=== PATIENT | male | born 1950 | race Caucasian/White ===

== ENCOUNTER 2022-01-19 10:31 | Emergency (ER) | payer OTHER ==
[~2022-01-19] VITALS: Ht 175.3 cm; Wt 80.7 kg
[2022-01-19] MEDS ORDERED: ORPHENADRINE C100 MG PO (13:01)
[2022-01-19] MEDS ORDERED: DICLOFENAC POTA50 MG PO (13:01)
== END 2022-01-19 13:07 ==
LOC: ER 10:31
DX: S33.5XXA Sprain of ligaments of lumbar spine, initial encounter (principal); X58.XXXA Exposure to other specified factors, initial encounter; Y93.9 Activity, unspecified; Y92.9 Unspecified place or not applicable; Y99.9 Unspecified external cause status; Z88.0 Allergy status to penicillin

== ENCOUNTER 2023-04-25 15:20 | Outpatient (CLI) | payer OTHER ==
[~2023-04-25 15:20] MED LIST: DICLOFENAC POTA50 MG PO; ORPHENADRINE C100 MG PO
== END 2023-04-25 15:30 | disposition home or self-care (01) ==
LOC: RAD 15:20
PROVIDERS: ATTEND Orthopaedic Surgery
DX: M25.561 Pain in right knee (principal); M25.562 Pain in left knee

== ENCOUNTER 2023-05-24 14:40 | Outpatient (CLI) | payer OTHER | END 2023-05-24 14:42 | disposition home or self-care (01) | LOC: NUCLEAR 14:40 | PROVIDERS: ATTEND Orthopaedic Surgery | DX: M81.0 Age-related osteoporosis without current pathological fracture (principal) ==

== ENCOUNTER 2023-08-09 13:32 | Outpatient (CLI) | payer OTHER | END 2023-08-09 13:34 | disposition home or self-care (01) | LOC: LAB 13:32 | PROVIDERS: ATTEND Orthopaedic Surgery | DX: E55.9 Vitamin D deficiency, unspecified (principal); M85.9 Disorder of bone density and structure, unspecified; E56.1 Deficiency of vitamin K ==

== ENCOUNTER → 2023-08-19 08:02 | Outpatient (CLI) | payer OTHER ==
[2023-08-19 08:39] LABS: URINE APPEARANCE Clear; URINE BILIRRUBIN Negative (NEGATIVE); URINE BLOOD Negative; URINE COLOR Yellow; URINE GLUCOSE Negative (NEGATIVE); URINE LEUKOCYTE Negative; URINE NITRATE Negative; URINE PROTEIN Negative (NEGATIVE)
[2023-08-19 08:41] LABS: HEMATOCRIT 44.7 % (39.0-48.0); HEMOGLOBIN 15.2 g/dL (13-16.00); MEAN CELL VOLUME 88.5 fL (80.0-100.00); MEAN CORPUSCULAR HGB CONC 33.9 g/dl (32.0-36.0); PLATELET COUNT 227 K/uL (150-450); RED BLOOD COUNT 5.06 M/uL (4.00-6.00)
[2023-08-19 08:44] LABS: URINE BACTERIA 2.5 uL (0.0-1933); URINE EPITHELIAL CELLS 0.4 uL (0.0-38.8); URINE WBC 0.9 uL (0.0-23.2)
[2023-08-19 09:18] LABS: BILIRUBIN TOTAL 0.6 mg/dL (0.3-1.2); CHOL HDL RATIO 3.7 (0-5.0); CREATININE SERUM 1.1 mg/dL (0.70-1.30); GFR 65.26; GLOBULINA 3.5 G/DL (2.4-3.5); POTASSIUM 4.29 mEq/L (3.5-5.1); TOTAL PROTEIN 7.5 gm/dL (6.4-8.2); TSH 3.55 uIU/mL (0.358-3.74)
[2023-08-19 11:23] LABS: VITAMIN D3 25 HYDROXY 31.54 ng/ml (30-120)
== END | disposition home or self-care (01) ==
LOC: LAB 08:02
PROVIDERS: ATTEND Family Medicine
DX: E55.9 Vitamin D deficiency, unspecified (principal); E78.00 Pure hypercholesterolemia, unspecified; L72.3 Sebaceous cyst

== ENCOUNTER 2023-10-04 07:48 | Outpatient (CLI) | payer OTHER ==
[2023-10-04 08:48] LABS: HEMATOCRIT 42.2 % (39.0-48.0); HEMOGLOBIN 14.2 g/dL (13-16.00); MEAN CELL VOLUME 89.2 fL (80.0-100.00); MEAN CORPUSCULAR HEMOGLOBIN 30.1 pg (27.00-32.0); MEAN CORPUSCULAR HGB CONC 33.8 g/dl (32.0-36.0); PLATELET COUNT 189 K/uL (150-450); RED BLOOD COUNT 4.73 M/uL (4.00-6.00); RED CELL DISTRIBUTION WIDTH 13.8 % (11.5-14.5)
[2023-10-04 09:03] LABS: ERYTHROCYTE SEDIMENTATION RATE 11 mm/hr
[2023-10-04 09:29] LABS: URIC ACID 4.7 mg/dL (3.5-8.5)
[2023-10-04 09:34] LABS: C-REACTIVE PROTEIN < 0.29 MG/DL (0.00-0.29)
[2023-10-04 15:49] LABS: PLATELET ESTIMATE NORMAL (NORMAL)
[2023-10-05 13:07] LABS: hgb a 97.4 % (96.4-98.8); hgb a2 2.6 % (1.8-3.2); hgb f 0 % (0.0-2.0); hgb s 0 % (0.0)
== END 2023-10-04 07:49 | disposition home or self-care (01) ==
LOC: LAB 07:48
PROVIDERS: ATTEND Orthopaedic Surgery
DX: M19.90 Unspecified osteoarthritis, unspecified site (principal); M10.9 Gout, unspecified; D64.9 Anemia, unspecified

== ENCOUNTER 2023-10-04 08:13 | Outpatient (CLI) | payer OTHER | END 2023-10-04 08:19 | disposition home or self-care (01) | LOC: RAD 08:13 | PROVIDERS: ATTEND Orthopaedic Surgery | DX: M25.511 Pain in right shoulder (principal); M25.512 Pain in left shoulder ==

== ENCOUNTER 2024-02-07 10:14 | Outpatient (CLI) | payer OTHER | END 2024-02-07 10:21 | disposition home or self-care (01) | LOC: RAD 10:14 | PROVIDERS: ATTEND Neuromusculoskeletal Medicine, Sports Medicine | DX: M54.2 Cervicalgia (principal) ==

== ENCOUNTER 2024-03-26 08:31 | Outpatient (CLI) | payer OTHER ==
[2024-03-26 09:32] LABS: PH,URINE 5.5 (5.0-8.0); URINE APPEARANCE Clear; URINE BILIRRUBIN Negative (NEGATIVE); URINE BLOOD Negative; URINE COLOR Yellow; URINE GLUCOSE Negative (NEGATIVE); URINE KETONE Negative (NEGATIVE); URINE LEUKOCYTE Negative; URINE NITRATE Negative; URINE PROTEIN Negative (NEGATIVE); URINE UROBILINOGEN 0.2 E.U./dl
[2024-03-26 09:36] LABS: URINE RBC 2.4 uL (0.0-20.8); URINE WBC 2.2 uL (0.0-23.2)
[2024-03-26 09:41] LABS: URINE EPITHELIAL CELLS 0.9 uL (0.0-38.8)
[2024-03-26 09:55] LABS: HEMATOCRIT 43.1 % (39.0-48.0); HEMOGLOBIN 14.7 g/dL (13-16.00); MEAN CELL VOLUME 88.8 fL (80.0-100.00); MEAN CORPUSCULAR HEMOGLOBIN 30.2 pg (27.00-32.0); PLATELET COUNT 198 K/uL (150-450); RED BLOOD COUNT 4.86 M/uL (4.00-6.00); RED CELL DISTRIBUTION WIDTH 13.8 % (11.5-14.5)
[2024-03-26 10:35] LABS: ALBUMIN 3.7 gm/dL (3.4-5.0); BILIRUBIN TOTAL 0.47 mg/dL (0.3-1.2); CALCIUM 8.9 mg/dL (8.5-10.1); CHOL HDL RATIO 3.9 (0-5.0); CREATININE SERUM 0.97 mg/dL (0.70-1.30); GFR 75.25; GLOBULINA 3.5 G/DL (2.4-3.5); POTASSIUM 4.38 mEq/L (3.5-5.1); TOTAL PROTEIN 7.2 gm/dL (6.4-8.2); TSH 2.73 uIU/mL (0.358-3.74)
== END 2024-03-26 08:40 | disposition home or self-care (01) ==
LOC: LAB 08:31
PROVIDERS: ATTEND Family Medicine
DX: R73.03 Prediabetes (principal); I10 Essential (primary) hypertension